=== PATIENT | male | born 1960 | race Caucasian/White ===

== ENCOUNTER 2017-03-23 16:50 | Emergency (ER) | payer OTHER ==
[~2017-03-23] VITALS: Ht 172.7 cm; Wt 75.0 kg
[2017-03-23 17:13] VITALS: BP 128/70; PULSE 93; RESP 18; TEMP 98.2; O2SAT 99
--- NOTE | 2017-03-23 17:46 | PD ---
HPI . Babb Act Chief Complaint: Psychiatric Symptoms Time Seen by Provider: 17:00 Travel History International Travel<30 days: No Contact w/Intl Traveler<30days: No Traveled to known affect area: No History of Present Illness HPI This patient presents to us under the Babb Act. The paperwork states that the patient is suicidal with no plan. The patient confirms this. He states that he had the onset of suicidal ideation today. No modifying factors. The patient admits to alcohol use and states that his last drink was last night. He denies drug abuse. The patient denies any previous psychiatric evaluation. [facility] Past Medical History Medical History: Denies Significant Hx Diminished Hearing: No Tetanus Vaccination: < 5 Years Influenza Vaccination: No Past Surgical History Surgical History: No Previous Surgery Social History Alcohol Use: Yes (OCC) Tobacco Use: Yes Substance Use: No Allergies-Medications (Allergen,Severity, Reaction): Coded Allergies: No Known Allergies (Unverified , 03/23/17) Reported Meds & Prescriptions Reported Meds & Active Scripts Active No Active Prescriptions or Reported Medications Review of Systems Except as stated in HPI: all other systems reviewed are Neg Musculoskeletal: Positive: Arthralgias (both feet) Psychiatric: Positive: Suicidal Ideations, Substance Abuse Physical Exam Narrative GENERAL: Awake and alert and in no acute distress. Disheveled. SKIN: Warm and dry. HEAD: Atraumatic. Normocephalic. EYES: Pupils equal and round. NECK: Trachea midline. CARDIOVASCULAR: Regular rate and rhythm. RESPIRATORY: No accessory muscle use. MUSCULOSKELETAL: No obvious deformities. No edema. NEUROLOGICAL: Awake and alert. No obvious cranial nerve deficits. Motor grossly within normal limits. Normal speech. PSYCHIATRIC: Patient makes good eye contact with the examiner. He does not appear to be responding to any internal stimuli. He reports no plan of suicide. Data Data Last Documented VS Vital Signs Date Time Temp Pulse Resp B/P Pulse Ox O2 Delivery O2 Flow Rate FiO2 03/23/17 17:13 98.2 93 18 128/70 99 Orders Complete Blood Count With Diff (03/23/17 17:15) Comprehensive Metabolic Panel (03/23/17 17:15) Psych Screen (03/23/17 17:15) Drug Screen, Random Urine (03/23/17 17:15) Alcohol (Ethanol) (03/23/17 17:15) Labs Laboratory Tests Test 03/23/17 17:25 White Blood Count 10.3 TH/MM3 Red Blood Count 4.69 MIL/MM3 Hemoglobin 13.0 GM/DL Hematocrit 38.9 % Mean Corpuscular Volume 82.9 FL Mean Corpuscular Hemoglobin 27.8 PG Mean Corpuscular Hemoglobin 33.5 % Concent Red Cell Distribution Width 16.3 % Platelet Count 254 TH/MM3 Mean Platelet Volume 8.7 FL Neutrophils (%) (Auto) 67.0 % Lymphocytes (%) (Auto) 25.5 % Monocytes (%) (Auto) 6.3 % Eosinophils (%) (Auto) 0.7 % Basophils (%) (Auto) 0.5 % Neutrophils # (Auto) 6.9 TH/MM3 Lymphocytes # (Auto) 2.6 TH/MM3 Monocytes # (Auto) 0.6 TH/MM3 Eosinophils # (Auto) 0.1 TH/MM3 Basophils # (Auto) 0.1 TH/MM3 CBC Comment DIFF FINAL Differential Comment Sodium Level 138 MEQ/L Potassium Level 3.7 MEQ/L Chloride Level 103 MEQ/L Carbon Dioxide Level 21.5 MEQ/L Anion Gap 14 MEQ/L Blood Urea Nitrogen 18 MG/DL Creatinine 0.93 MG/DL Estimat Glomerular Filtration 84 ML/MIN Rate Random Glucose 106 MG/DL Calcium Level 8.6 MG/DL Total Bilirubin 0.3 MG/DL Aspartate Amino Transf 44 U/L (AST/SGOT) Alanine Aminotransferase 54 U/L (ALT/SGPT) Alkaline Phosphatase 71 U/L Total Protein 7.6 GM/DL Albumin 4.3 GM/DL Urine Opiates Screen NEG Urine Barbiturates Screen NEG Urine Amphetamines Screen NEG Urine Benzodiazepines Screen NEG Urine Cocaine Screen NEG Urine Cannabinoids Screen NEG Ethyl Alcohol Level 203 MG/DL [facility] Medical Decision Making Medical Screen Exam Complete: Yes Emergency Medical Condition: Yes Differential Diagnosis Differential diagnosis includes but is not limited to depression with suicidal gesture, suicide attempt, suicidal ideation, attention seeking behavior. Narrative Course This patient presents to us as a Babb Act for suicidal ideation. He'll be medically cleared and then referred for psych screening. CBC & BMP Diagram 03/23/17 17:25 LFTs are normal. Drug screen is negative. Alcohol level is 203. This patient is medically clear for psychiatric evaluation. Diagnosis Primary Impression: Encounter for medical screening examination Scripts No Active Prescriptions or Reported Meds Condition: Susan Grimaldo MD Mar 23, 2017 17:46
[2017-03-23 17:50] LABS: AUTOMATED NEUTROPHIL # 6.9 TH/MM3 (1.8-7.7); BASOPHIL # 0.1 TH/MM3 (0-0.2); BASOPHIL % 0.5 % (0.0-2.0); EOSINOPHIL # 0.1 TH/MM3 (0-0.4); EOSINOPHIL % 0.7 % (0.0-4.0); HEMATOCRIT 38.9 % (39.0-51.0); HEMO FLAGS DIFF FINAL; LYMPH % 25.5 % (9.0-44.0); LYMPHOCYTE # 2.6 TH/MM3 (1.0-4.8); MEAN CELL VOLUME 82.9 FL (80.0-100.0); MEAN CORPUSCULAR HEMOGLOBIN 27.8 PG (27.0-34.0); MEAN CORPUSCULAR HGB CONC 33.5 % (32.0-36.0); MONO % 6.3 % (0.0-8.0); PLATELET COUNT 254 TH/MM3 (150-450); RED BLOOD COUNT 4.69 MIL/MM3 (4.50-5.90); RED CELL DISTRIBUTION WIDTH 16.3 % (11.6-17.2); WHITE BLOOD COUNT 10.3 TH/MM3 (4.0-11.0)
[2017-03-23 17:53] LABS: AMPHETAMINE, URINE NEG (NEG); BARBITURATES, URINE NEG (NEG); COCAINE, URINE NEG (NEG)
[2017-03-23 18:02] LABS: ALT (GPT) 54 U/L (12-78); ANION GAP 14 MEQ/L (5-15); AST (GOT) 44 U/L (15-37); BICARBONATE 21.5 MEQ/L (21.0-32.0); BLOOD UREA NITROGEN 18 MG/DL (7-18); CHLORIDE 103 MEQ/L (98-107); GLOMERULAR FILTRATION RATE 84 ML/MIN (>89); POTASSIUM 3.7 MEQ/L (3.5-5.1); SODIUM (NA) 138 MEQ/L (136-145)
[2017-03-23 18:04] LABS: ALKALINE PHOSPHATASE 71 U/L (45-117); TOTAL BILIRUBIN ADULT 0.3 MG/DL (0.2-1.0)
[2017-03-23 18:44] VITALS: BP 118/68; PULSE 91; RESP 18; O2SAT 96
[2017-03-23 22:21] VITALS: BP 121/70; PULSE 74; RESP 18
[2017-03-24 02:54] VITALS: BP 139/89; PULSE 68; RESP 16; O2SAT 97
[2017-03-24 06:25] VITALS: BP 150/81; PULSE 63; RESP 18
--- NOTE | 2017-03-24 13:58 | PD.PSY.CON ---
Provisional Diagnosis Admission Date [place] I. Alcohol induced mood disorder, alcohol use disorder [place] II. Deferred [place] III. Significant medical history History of Present Illness Service Psychiatry Consult Requested By Primary Care Physician No Primary Care Physician HPI The patient is a 51-year-old man, unknown by this service, homeless, single, unemployed, without any previous psychiatric history, history of alcohol use disorder, no significant medical history, no previous suicidal attempts, who was brought by the police to the hospital on the Babb act with suicidal ideation, no plan in the context of acute alcohol intoxication. Initial BAL was 203. On psychiatric evaluation today patient is clinically sober, calm, cooperative, coherent, relevant. He denies depressive symptoms, he denies anhedonia, had denies hopelessness, he says that yesterday he was just drunk he was doing bizarre things when he was caught by police. Today patient denies suicidal or homicidal ideation, denies visual and auditory hallucinations. Patient says that although he needs are a pair of shoes. He is oriented 3, no attention deficit, no fluctuation of consciousness. No withdrawal symptoms present or reported. He reports almost daily use of alcohol , denies other drugs. Review of Systems Constitutional: DENIES: Diaphoretic episodes, Fatigue, Fever, Weight gain, Weight loss, Chills, Dizziness, Change in appetite, Night Sweats Endocrine: DENIES: Heat/cold intolerance, Polydipsia, Polyuria, Polyphagia Eyes: DENIES: Blurred vision, Diplopia, Eye inflammation, Eye pain, Vision loss , Photosensitivity, Double Vision Ears, nose, mouth, throat: DENIES: Tinnitus, Hearing loss, Vertigo, Nasal discharge, Oral lesions, Throat pain, Hoarseness, Ear Pain, Running Nose, Epistaxis, Sinus Pain, Toothache, Odynophagia Respiratory: DENIES: Apneas, Cough, Snoring, Wheezing, Hemoptysis, Sputum production, Shortness of breath Cardiovascular: DENIES: Chest pain, Palpitations, Syncope, Dyspnea on Exertion , PND, Lower Extremity Edema, Orthopnea, Claudication Gastrointestinal: DENIES: Abdominal pain, Black stools, Bloody stools, Constipation, Diarrhea, Nausea, Vomiting, Difficulty Swallowing, Anorexia Integumentary: DENIES: Abnormal pigmentation, Nail changes, Pruritus, Rash Hematologic/lymphatic: DENIES: Bruising, Lymphadenopathy Immunologic/allergic: DENIES: Eczema, Urticaria Neurologic: DENIES: Abnormal gait, Headache, Localized weakness, Paresthesias, Seizures, Speech Problems, Tremor, Poor Balance Psychiatric: DENIES: Anxiety, Confusion, Mood changes, Depression, Hallucinations, Agitation, Suicidal Ideation, Homicidal Ideation, Delusions Past Family Social History Coded Allergies: No Known Allergies (Unverified , 03/23/17) No Active Prescriptions or Reported Meds Family History He denies family psychiatric history Social History Patient was born in [facility], he lives in [facility], homeless, single, unemployed, supported by food stamps, highest level of education is eighth grade Patient's Strengths (min. 2) No previous psychiatric history Physical Exam No withdrawal symptoms Vital Signs Vital Signs Date Time Temp Pulse Resp B/P Pulse Ox O2 Delivery O2 Flow Rate FiO2 03/24/17 10:42 63 18 03/24/17 06:25 150/81 03/24/17 02:54 97 03/23/17 22:21 Room Air 03/23/17 17:13 98.2 Lab Results Laboratory Tests Test 03/23/17 17:25 White Blood Count 10.3 TH/MM3 Red Blood Count 4.69 MIL/MM3 Hemoglobin 13.0 GM/DL Hematocrit 38.9 % Mean Corpuscular Volume 82.9 FL Mean Corpuscular Hemoglobin 27.8 PG Mean Corpuscular Hemoglobin 33.5 % Concent Red Cell Distribution Width 16.3 % Platelet Count 254 TH/MM3 Mean Platelet Volume 8.7 FL Neutrophils (%) (Auto) 67.0 % Lymphocytes (%) (Auto) 25.5 % Monocytes (%) (Auto) 6.3 % Eosinophils (%) (Auto) 0.7 % Basophils (%) (Auto) 0.5 % Neutrophils # (Auto) 6.9 TH/MM3 Lymphocytes # (Auto) 2.6 TH/MM3 Monocytes # (Auto) 0.6 TH/MM3 Eosinophils # (Auto) 0.1 TH/MM3 Basophils # (Auto) 0.1 TH/MM3 CBC Comment DIFF FINAL Differential Comment Sodium Level 138 MEQ/L Potassium Level 3.7 MEQ/L Chloride Level 103 MEQ/L Carbon Dioxide Level 21.5 MEQ/L Anion Gap 14 MEQ/L Blood Urea Nitrogen 18 MG/DL Creatinine 0.93 MG/DL Estimat Glomerular Filtration 84 ML/MIN Rate Random Glucose 106 MG/DL Calcium Level 8.6 MG/DL Total Bilirubin 0.3 MG/DL Aspartate Amino Transf 44 U/L (AST/SGOT) Alanine Aminotransferase 54 U/L (ALT/SGPT) Alkaline Phosphatase 71 U/L Total Protein 7.6 GM/DL Albumin 4.3 GM/DL Urine Opiates Screen NEG Urine Barbiturates Screen NEG Urine Amphetamines Screen NEG Urine Benzodiazepines Screen NEG Urine Cocaine Screen NEG Urine Cannabinoids Screen NEG Ethyl Alcohol Level 203 MG/DL Mental Status Examination Appearance malodorous, disheveled man, age appearing, calm and cooperative Speech: Unremarkable Orientation: x3 Memory: Unremarkable Thought Process: Logical Thought Content: Unremarkable Hallucination Type: None Suicidal Ideation: No Homicidal Ideation: No Previous Homicide Attempts: No Judgment: WNL Affect: Euthymic Mood: Appropriate Motor Activity: Normal gait Assessment & Plan Problem List: (1) Alcohol abuse with alcohol-induced mood disorder Assessment & Plan: On somatic evaluation today patient does not present any evidence of depressive symptoms, sciatic, sunil or psychosis. Denies suicidal or homicidal ideation, he denies visual and auditory hallucinations. His clinical is over, coherent, relevant logical. No withdrawal symptoms present or reported. Apparently his recent suicidal attempt suicidal statements was in the context of acute alcohol intoxication. He does not meet criteria for involuntary psychiatric admission at this moment. Babb act will be lifted. ICD Code: F10.14 Assessment & Plan Estimated LOS: Jason Arora MD Mar 24, 2017 13:58
== END 2017-03-24 13:12 | disposition home or self-care (01) ==
LOC: NEPD 16:50 → NEPJ 03-24 13:12
DX: R45.851 Suicidal ideations (principal); Z72.0 Tobacco use
CPT/HCPCS: 80053; 80307; 85025; 99284